=== PATIENT | female | born 1970 ===

== ENCOUNTER 2021-03-20 19:40 | Emergency (ER) | payer OTHER, SELFPAY ==
--- NOTE | ~2021-03-20 | XR_ITS ---
EXAMINATION: XR FINGER, LEFT CLINICAL INFORMATION: Cut index finger with an X COMPARISON: None TECHNIQUE: 3 views of the left left index finger. FINDINGS: There is a fracture of the distal tuft of the distal phalanx of the index finger. The fracture appears to extend mainly on the radial aspect of the phalanx. No other fractures are seen. Incidentally noted are some mild degenerative changes at the DIP joints. XR/XR finger LT min 2V IMPRESSION: Fracture of the distal tuft of the distal phalanx of the index finger.
[2021-03-20 20:12] VITALS: BP 127/87; PULSE 91; RESP 16; TEMP 36.7; O2SAT 98; BMI 30.9
[2021-03-20] MEDS: Lidocaine 4 % Cream KIT 1 APPL TOPICAL (20:18)
--- NOTE | 2021-03-20 21:48 | ED_ITS ---
HPI - Wound/Laceration General Chief Complaint: Wound/Laceration <Abimael Valdes NP - Last Filed: 05/08/21 02:00> Stated Complaint: finger lac <Abimael Valdes NP - Last Filed: 05/08/21 02:00> Time Seen by Provider: 03/20/21 19:55 <Abimael Valdes NP - Last Filed: 05/08/21 02:00> Source: patient <Abimael Valdes NP - Last Filed: 05/08/21 02:00> Mode of arrival: ambulatory <Abimael Valdes NP - Last Filed: 05/08/21 02:00> Limitations: no limitations <Abimael Valdes NP - Last Filed: 05/08/21 02:00> History of Present Illness HPI narrative: States was chopping wood with an Axe and accidentally cut left index finger distal aspect with ax. Unsure of tetanus vaccination. <Abimael Valdes NP - Last Filed: 05/08/21 02:00> Extremity Location: left: hand <Abimael Valdes NP - Last Filed: 05/08/21 02:00> Place: home <Abimael Valdes NP - Last Filed: 05/08/21 02:00> Patient tetanus UTD: No <Abimael Valdes NP - Last Filed: 05/08/21 02:00> Context: accidental <Abimael Valdes NP - Last Filed: 05/08/21 02:00> Associated symptoms: pain <Abimael Valdes NP - Last Filed: 05/08/21 02:00> Treatments prior to arrival: bandage <Abimael Valdes NP - Last Filed: 05/08/21 02:00> Related Data Home Medications: Previous Rx's Medication Instructions Recorded amoxicillin-pot clavulanate 1 tab PO Q12H 10 Days #20 tab 03/20/21 [Augmentin] ibuprofen 800 mg PO Q8H PRN #30 tab 03/20/21 <Abimael Valdes NP - Last Filed: 05/08/21 02:00> Allergies/Adverse Reactions: Allergies Allergy/AdvReac Type Severity Reaction Status Date / Time pseudoephedrine [Sudafed] Allergy Unknown increase Verified 04/02/21 09:16 b/p No Known Allergies Allergy Verified 04/02/21 09:16 [No Known Allergies*] sulfamethoxazole Allergy Unknown Verified 04/02/21 09:16 [From Bactrim] trimethoprim [From Bactrim] Allergy Unknown Verified 04/02/21 09:16 Sulfa (Sulfonamide AdvReac Unknown acute Verified 04/02/21 09:16 Antibiotics) kidney injury wheat, casein, soy, tomatoes Allergy Unknown Diarrhea Uncoded 04/02/21 09:16 a <Abimael Valdes NP - Last Filed: 05/08/21 02:00> Review of Systems Review of Systems: Constitutional: No Weight loss, No Fever, No Chills, No Night Sweats, No Fatigue, No Malaise ENT/Mouth: No Hearing loss, No Ear Pain, No Nasal Congestion, No Sinus Pain, No Hoarseness, No sore throat, No Rhinorrhea, No Swallowing Difficulty Eyes: No Eye Pain, No Swelling, No Redness, No Foreign Body, No Discharge, No Vision Changes Cardiovascular: No Chest Pain, No SOB, No Dyspnea on Exertion, No Orthopnea, No Edema, No Palpitations Respiratory: No Cough, No Sputum, No Wheezing, No Smoke Exposure, No Dyspnea Musculoskeletal: No joint pain, No Myalgias, No Joint Swelling, as above per HPI Skin: No Skin Lesions, No rash Neuro: No Weakness, No Numbness, No Paresthesias, No Loss of Consciousness, No Dizziness, No Headache Psych:No Social Issues Heme/Lymph: No Bruising, No Bleeding,No Lymphadenopathy Endocrine: No Polyuria, No Polydipsia, No Temperature Intolerance <Abimael Valdes NP - Last Filed: 05/08/21 02:00> Yes all other systems are reviewed and are negative <Abimael Valdes NP - Last Filed: 05/08/21 02:00> PMFSH Past Medical History Medical History: Medical History No known health problems <Abimael Valdes NP - Last Filed: 05/08/21 02:00> Social History Social History: Social History Alcohol intake: never Current occupational status: employed 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 <Abimael Valdes NP - Last Filed: 05/08/21 02:00> Physical Exam Vital Signs: Vital Signs: Last Vital Signs Temp 98.1 F 03/20/21 20:12 Pulse 91 03/20/21 20:12 Resp 16 03/20/21 20:12 BP 127/87 03/20/21 20:12 Pulse Ox 98 03/20/21 20:12 Body Mass Index 30.9 Reviewed <Abimael Valdes NP - Last Filed: 05/08/21 02:00> Vital Signs: Last Vital Signs Temp 98.1 F 03/20/21 20:12 Pulse 91 03/20/21 20:12 Resp 16 03/20/21 20:12 BP 127/87 03/20/21 20:12 Pulse Ox 98 03/20/21 20:12 Body Mass Index 30.9 <Mik Azul MD - Last Filed: 06/09/21 09:40> Const: General: cooperative and healthy appearing; No acute distress or intoxicated appearing <Abimael Valdes NP - Last Filed: 05/08/21 02:00> Nutritional Appearance: average body habitus <Abimael Valdes NP - Last Filed: 05/08/21 02:00> Orientation/consciousness: patient oriented x3 <Abimael Valdes NP - Last Filed: 05/08/21 02:00> HENMT: Head: Yes normal to inspection <Abimael Valdes NP - Last Filed: 05/08/21 02:00> Ears: hearing grossly normal bilaterally <Abimael Valdes NP - Last Filed: 05/08/21 02:00> Chest: Chest palpation & inspection: normal inspection of the chest <Abimael Valdes NP - Last Filed: 05/08/21 02:00> Resp: Effort & Inspection: normal respiratory effort <Abimael Valdes NP - Last Filed: 05/08/21 02:00> Cardio: Jugular venous distension: no JVD <Abimael Valdes NP - Last Filed: 05/08/21 02:00> Skin: General skin exam: no rashes or lesions noted <Abimael Valdes NP - Last Filed: 05/08/21 02:00> Neuro: General: patient oriented x3 <Abimael Valdes NP - Last Filed: 05/08/21 02:00> Extrem: General: Yes normal to inspection <Abimael Valdes NP - Last Filed: 05/08/21 02:00> Left upper extremity: hand <Abimael Valdes NP - Last Filed: 05/08/21 02:00> Course Course Course Narrative: X-ray findings reviewed, laceration repaired case discussed with orthopedic hand surgeon Dr. Mccarthy's will see in office. Patient will be placed on prophylactic antibiotics. Given tetanus vaccination. Finger splint provided feels comfortable plan. Stable for discharge. <Abimael Valdes NP - Last Filed: 05/08/21 02:00> I have reviewed the chart <Mik Azul MD - Last Filed: 06/09/21 09:40> Procedures Laceration Laceration 1: Side (If applicable): left <Abimael Valdes NP - Last Filed: 05/08/21 02:00> Size (cm): 1 <Abimael Valdes NP - Last Filed: 05/08/21 02:00> Description: linear <Abimael Valdes NP - Last Filed: 05/08/21 02:00> Depth: simple, single layer <Abimael Valdes NP - Last Filed: 05/08/21 02:00> Local Anesthetic: lidocaine 1% (Digital block 5 ml) <Abimael Valdes NP - Last Filed: 05/08/21 02:00> Amount of anesthesia used (mL): 5 <Abimael Valdes NP - Last Filed: 05/08/21 02:00> Pre-repair: wound explored <Abimael Valdes NP - Last Filed: 05/08/21 02:00> Skin layer closed with: nylon <Abimael Valdes NP - Last Filed: 05/08/21 02:00> Size (cm): 4-0 <Abimael Valdes NP - Last Filed: 05/08/21 02:00> Number of sutures: 4 <Abimael Valdes NP - Last Filed: 05/08/21 02:00> Technique: simple, interrupted <Abimael Valdes NP - Last Filed: 05/08/21 02:00> MDM - Wound/Laceration Differential Diagnosis Differential diagnosis: Likely laceration <Abimael Valdes NP - Last Filed: 05/08/21 02:00> Lab Data Attestation: I reviewed the patient's lab results. <Abimael Valdes NP - Last Filed: 05/08/21 02:00> Imaging Data Hand x-ray: Radiologist's impression: [address] [id number] ReportSigned Patient: Jerson Iniguez#: [id number]: [id number] :[id number]/Sex: 50 / FADM Date: 03/20/21Loc: [email or web address] Dr: Ordering Physician: Abimael Valdes NP Date of Service: 03/20/21 Procedure(s): XR finger LT min 2V Accession Number(s): [id number] cc: Abimael Valdes NP~ EXAMINATION: XR FINGER, LEFT CLINICAL INFORMATION: Cut index finger with an X COMPARISON: None TECHNIQUE: 3 views of the left left index finger. FINDINGS: There is a fracture of the distal tuft of the distal phalanx of the index finger. The fracture appears to extend mainly on the radial aspect of the phalanx. No other fractures are seen. Incidentally noted are some mild degenerative changes at the DIP joints. XR/XR finger LT min 2V IMPRESSION: Fracture of the distal tuft of the distal phalanx of the index finger. Dictated By:MIK YAP MDSigned By:<Electronically signed by MIK YAP MD in OV>03/20/212010 DD/ 54TD/TT: Principal Technical Writer: MARILEE <Abimael Valdes NP - Last Filed: 05/08/21 02:00> Discharge Plan Discharge Clinical Impression: Open fracture of finger, Finger laceration <Abimael Valdes NP - Last Filed: 05/08/21 02:00> Patient Disposition: Home, Self-Care <Abimael Valdes NP - Last Filed: 05/08/21 02:00> Instructions: Diphtheria/Acellular Pertussis/Tetanus Booster Vaccine (Tdap) (By..., Finger Fracture (ED), Splint Care (ED), Finger Laceration (ED) <Abimael Valdes NP - Last Filed: 05/08/21 02:00> Additional Instructions: Please leave splint in place Taking antibiotic as prescribed Follow-up with the hand surgeon closely call tomorrow for follow-up appointment Return if any concerns or worsening symptoms Thank you <Abimael Valdes NP - Last Filed: 05/08/21 02:00> Prescriptions: New amoxicillin-pot clavulanate [Augmentin] 875-125 mg tablet 1 tab PO Q12H 10 Days Qty: 20 RF: 0 ibuprofen 800 mg tablet 800 mg PO Q8H PRN (Reason: pain) Qty: 30 RF: 0 <Abimael Valdes NP - Last Filed: 05/08/21 02:00> Referrals: Tia Tafoya MD [Physician] - 2 days ( Fracture of the distal tuft of the distal phalanx of the index finger. Given tetanus, antibiotics and 3 stitches in the ED) <Abimael Valdes NP - Last Filed: 05/08/21 02:00> Interventions: ED Discharge Assessment Last Done: 03/20/21 22:33 <Abimael Valdes NP - Last Filed: 05/08/21 02:00> Discharge Date/Time: 03/20/21 22:48 <Abimael Valdes NP - Last Filed: 05/08/21 02:00>
[2021-03-20] MEDS: Diphth,Pertus(ACell),Tet Adult 0.5 ML SYRINGE IM (22:08)
[2021-03-20] MEDS: Amoxicillin/Potassium Clav 875 MG TABLET PO (22:08)
[2021-03-20] MEDS: Ibuprofen 800 MG TABLET PO (22:16)
== END 2021-03-20 22:48 | disposition home or self-care (01) ==
PROVIDERS: Emergency Provider Internal Medicine; PCP Internal Medicine
DX: S62.661B Nondisplaced fracture of distal phalanx of left index finger, initial encounter for open fracture (principal); W27.0XXA Contact with workbench tool, initial encounter; Y93.89 Activity, other specified; Y92.017 Garden or yard in single-family (private) house as the place of occurrence of the external cause; Y99.9 Unspecified external cause status
CPT/HCPCS: 12001; 29130; 73140; 90471; 90715; 99284

== ENCOUNTER → 2021-03-26 09:35 | Outpatient (BNVA) | payer OTHER, SELFPAY | PROVIDERS: Visit Provider Orthopaedic Surgery | DX: S62.631B Displaced fracture of distal phalanx of left index finger, initial encounter for open fracture (principal) | CPT/HCPCS: 99202 ==

== ENCOUNTER → 2021-04-02 09:01 | Outpatient (BNVA) | payer OTHER, SELFPAY | PROVIDERS: Visit Provider Physician Assistant | DX: S62.631B Displaced fracture of distal phalanx of left index finger, initial encounter for open fracture (principal) | CPT/HCPCS: 99212 ==

== ENCOUNTER 2021-08-24 09:32 | Outpatient (REF) | payer OTHER, SELFPAY ==
[2021-08-24 11:26] LABS: MANUAL DIFF FLAG NO
[2021-08-24 11:33] LABS: Basophils Percent Auto 0.6 % (0-2); Eosinophils Absolute Auto 0.1 X10*3/uL (0.0-0.4); Eosinophils Percent Auto 2.3 % (0-4); Hematocrit 41.6 % (37-47); Hemoglobin 13.8 g/dl (12.0-16.0); Imm Gran Abs Auto 0.01 X10*3/uL (0.00-0.03); Imm Gran Pct Auto 0.2 % (0.0-0.4); Lymphocytes Absolute Auto 1.4 X10*3/uL (1.2-4.9); Lymphocytes Percent Auto 27.4 % (20-40); Mean Corpuscular HGB Conc 33.2 g/dl (31.0-35.0); Mean Corpuscular Hemoglobin 28.8 pg (27.0-33.0); Mean Corpuscular Volume 86.8 fL (80-98); Mean Platelet Volume 9.4 fL (9.4-12.3); Monocytes Absolute Auto 0.4 X10*3/uL (0.1-1.2); Monocytes Percent Auto 8.2 % (2-11); Neutrophils Absolute Auto 3.1 X10*3/uL (2.0-8.3); Neutrophils Percent Auto 61.3 % (45-73); Platelet Count 277 X10*3/uL (160-400); Red Blood Count 4.79 X10*6/uL (4.20-5.50); Red Cell Distribution Width 12.1 % (11.0-16.0); White Blood Count 5.1 X10*3/uL (4.8-10.8)
[2021-08-24 11:50] LABS: Alanine Aminotransferase 11 U/L (0-31); Aspartate Amino Transferase 16 U/L (5-31); Cholesterol 272 mg/dL; HDL Cholesterol 45 mg/dL; LDL Cholesterol Calculated 193 mg/dl; Triglycerides 171 mg/dL
[2021-08-24 12:11] LABS: Erythrocyte Sedimentation Rate 14 MM/HR (0-20)
[2021-08-24 12:13] LABS: TSH reflex Free T4 2.21 uIU/mL (0.32-4.0)
[2021-08-24 12:23] LABS: Folate 9.1 ng/mL (> or = 4.0); Vitamin B12 792 pg/mL (200-900)
[2021-08-25 17:02] LABS: EBV-VCA IgM Ab <36.00 U/mL; Lyme Abs Screen <0.90 index
[2021-08-27 13:56] LABS: CRP High Sensitivity 3.2 mg/L
[2021-08-29 22:42] LABS: Anti Nuclear Antibody Screen POSITIVE (NEGATIVE)
== END 2021-08-24 09:33 | disposition home or self-care (01) ==
LOC: HO.HMGCLDS 09:32
PROVIDERS: PCP Internal Medicine; Visit Provider Internal Medicine
DX: E66.9 Obesity, unspecified (principal); F43.10 Post-traumatic stress disorder, unspecified; H69.80 Other specified disorders of Eustachian tube, unspecified ear; H93.19 Tinnitus, unspecified ear; M25.50 Pain in unspecified joint; R53.81 Other malaise; R53.82 Chronic fatigue, unspecified; Z78.0 Asymptomatic menopausal state
CPT/HCPCS: 36415; 80061; 82306; 82607; 82746; 84443; 84450; 84460; 85025; 85652; 86038; 86039; 86141; 86617; 86618; 86664; 86665

== ENCOUNTER 2021-12-31 08:26 | Outpatient (REF) | payer OTHER, SELFPAY ==
--- NOTE | ~2021-12-31 | US_ITS ---
EXAMINATION: US ABDOMEN COMPLETE CLINICAL INFORMATION: Right upper quadrant pain. COMPARISON: Ultrasound abdomen limited 03/13/2018. CT abdomen and pelvis without contrast 03/12/2018. TECHNIQUE: Real-time imaging of the abdominal viscera. FINDINGS: PANCREAS: Normal. ABDOMINAL AORTA: The proximal, mid, and distal segments are normal in caliber. INFERIOR VENA CAVA: Visualized portions are normal. LIVER: The liver is normal in size. The liver contour is normal. Liver echotexture is slightly increased. No focal hepatic lesion. There is no intrahepatic biliary duct dilatation seen. GALLBLADDER: Normal. The gallbladder is physiologically distended without evidence of stones, sludge, polyps, wall thickening or pericholecystic fluid. COMMON BILE DUCT: Normal in caliber measuring 0.4 cm in diameter. RIGHT KIDNEY: Normal. No hydronephrosis. No renal calculi or focal parenchymal lesions. The kidney measures 10.4 cm in maximum dimension. LEFT KIDNEY: There is a 3 mm echogenic density in the lower pole with twinkle artifact questionable for a stone versus cortical calcification. No hydronephrosis. The kidney measures 9.9 cm in maximum dimension. SPLEEN: Normal. The spleen measures 7.9 cm in maximum dimension. FREE FLUID: None. US/US abdomen complete IMPRESSION: Slightly echogenic liver. Question small left renal stone versus cortical calcification. Otherwise unremarkable exam.
== END 2021-12-31 08:27 | disposition home or self-care (01) ==
LOC: HO.HMGCX 08:26
PROVIDERS: PCP Internal Medicine; Visit Provider Internal Medicine
DX: R10.11 Right upper quadrant pain (principal)
CPT/HCPCS: 76700

== ENCOUNTER 2022-02-05 15:01 | Outpatient (REF) | payer OTHER, SELFPAY ==
[2022-02-08 12:21] LABS: Transglutaminase Ab IgG <1.0 U/mL; Transglutaminase IgA <1.0 U/mL
== END 2022-02-05 15:02 | disposition home or self-care (01) ==
LOC: HO.LAB 15:01
PROVIDERS: PCP Internal Medicine; Referring Provider Internal Medicine; Visit Provider Nurse Practitioner Family
DX: Z01.818 Encounter for other preprocedural examination (principal); R10.11 Right upper quadrant pain; R14.0 Abdominal distension (gaseous)
CPT/HCPCS: 36415; 86364; 99202

== ENCOUNTER 2022-04-23 11:39 | Outpatient (REF) | payer OTHER, SELFPAY | END 2022-04-23 11:40 | disposition home or self-care (01) | LOC: HO.LAB 11:39 | PROVIDERS: PCP Internal Medicine; Visit Provider Nurse Practitioner Family | DX: K58.9 Irritable bowel syndrome, unspecified (principal) | CPT/HCPCS: 36415; 86003; 99212 ==

== ENCOUNTER 2022-07-19 11:00 | Outpatient (RCR) | payer OTHER, SELFPAY ==
--- NOTE | 2022-05-28 15:20 | MHC.PT.EP ---
[facility] [employer] [place] Office [place] Office [place] Office [address] Janet Mcbride [address] [phone] F: [phone] F: [phone] F: [phone] F: [phone] Physical Therapy Plan of Care Date of Evaluation: Date of Surgery: N/A Diagnosis: low back/bilateral shoulder pain and polyarthralgia Assessment: Angelica is a 52 yo F referred to PT for low back/bilateral shoulder pain and polyarthralgia. She reports that back pain is more limiting then shoulder pain. She reports receiving help with shopping, cleaning, and lifting heaving objects from her , but does dress and bathe herself although with difficulty. Reports pain does wake her up in the night. 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 She presents with B gross weakness in her hips and tissue tension in her low back. Angelica will benefit from skilled PT to treat the aforementioned impairments and receive postural education, and develop pain management strategies. Frequency and Duration: The patient will be seen 2/ week for 6 weeks Short Term Goals: Patient will report a 50% decrease in pain which will allow her to sleep throughout the night in 3 weeks. Patient will demonstrate initiation of HEP in 3 weeks. Asses shoulder is 2 weeks Mcc Goals: Patient will be I with HEP to promote ocean transportation intermediary pain management strategies and maintain level of function in 6 weeks. Patient will demonstrate a 1/2 grade increase in core strength which will allow her to sit for extended periods while playing piano and return to other functions with a pain no more than 2/10 in 6 weeks. Treatment Plan: Modalities to reduce pain, spasms and effusion. Manual therapy to restore motion and function. Therapeutic exercise to improve strength and flexibility. Neuromuscular re-education for posture and balance. Therapeutic activities to return to functional activities of daily living. Electronically signed by: Farida Arrington PT DPT Please sign and return to therapist. Thank you for your referral.
--- NOTE | 2022-08-21 13:48 | MHC.PT.DC ---
[facility] [place] Office [place] Office [place] Office [address] Tessa Mcbride 140 [facility] [phone] F: [phone] F: [phone] F: [phone] F: [phone] Physical Therapy Discharge Report Diagnosis: low back/bilateral shoulder pain and polyarthralgia Date of Surgery: N/A Date of Evaluation: 05/28/22 Date of Discharge: 08/21/22 Treatments to Date: 8 Cancellations to Date: 0 No Shows to Date: Discharge Status: Patient Elected to Stop Discharge Summary: Angelica has not arrived to PT for over a month. She canceled her last appointment stating she has a procedure however she did not reschedule. She is therefore being d/c from PT. Electronically signed by: Farida Arrington PT DPT Please sign and return to therapist. Thank you for your referral.
== END 2022-08-21 13:48 | disposition home or self-care (01) ==
LOC: HO.PT 11:00
PROVIDERS: PCP Internal Medicine; Visit Provider Internal Medicine
DX: M25.50 Pain in unspecified joint (principal); M54.50 Low back pain, unspecified; M25.511 Pain in right shoulder; M25.512 Pain in left shoulder
CPT/HCPCS: 97110; 97162

== ENCOUNTER 2022-07-29 10:00 | Day surgery (SDC) | payer OTHER, SELFPAY ==
[2022-07-24 14:47] VITALS: BMI 32.5
--- NOTE | 2022-07-29 10:19 | HO.ANESPROP2 ---
[facility], [facility] Active Problems Active Problems: All Active Problems (Updated 10/28/21 @ 16:42 by Anastasiia Chaparro MD) Dyslipidemia (Acute) Elevated antinuclear antibody (LOI) level (Acute) Chronic fatigue and malaise (Acute) Polyarthralgia (Acute) Tinnitus (Acute) Eustachian tube dysfunction (Acute) PTSD (post-traumatic stress disorder) (Acute) Open fracture of distal phalanx of left index finger (Acute) Past Medical History Medical History Addiction Chronic fatigue and malaise Depressed Dyslipidemia Elevated antinuclear antibody (LOI) level Eustachian tube dysfunction Polyarthralgia PTSD (post-traumatic stress disorder) Tinnitus Family History Family History Father Substance abuse Mother Mental health disorder Paternal Grandmother Colon cancer Family history of problems with anesthesia: No Surgical History Surgical History Hx of laparoscopy History of Problems with Anesthesia: No Social History Social History Housing: House Are you a primary pet care technician to a significant other at home: No Do you presently have visiting nurse or other home services: No Alcohol intake: never Patient Tobacco Use Status: Former Tobacco user Tobacco use type: Cigarette Cigarette Packs Per Day: 1 Cigarettes Per Day: 20 Years Smoked: 9 e-Cigarette/Vaping Use: Never Used Second Hand Smoke Exposure: No Use of substances other than those prescribed or required for medical reasons: No Have you been hit, kicked, punched, or otherwise hurt by someone within the past year? 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 Cognitive needs: No Hearing needs: No Vision needs: Yes Meds Allergies Allergy/AdvReac Type Severity Reaction Status Date / Time pseudoephedrine [Sudafed] Allergy Intermediate increase Verified 07/24/22 14:43 b/p Sulfa (Sulfonamide Allergy Intermediate acute Verified 07/24/22 14:43 Antibiotics) kidney injury sulfamethoxazole Allergy Intermediate kidney Verified 07/24/22 14:43 [From Bactrim] function dropped trimethoprim [From Bactrim] Allergy Intermediate kidney Verified 07/24/22 14:43 function dropped wheat, casein, soy, tomatoes AdvReac Intermediate Diarrhea Uncoded 07/24/22 14:43 a Active Medications: Current Medications Lactated Ringer's (Lr) 1,000 mls @ 50 mls/hr IVCONT .Q20H MELISSA Home Medications Medication Instructions Recorded Confirmed Last Taken Type antiarthritic combination no.2 900 mg PO 04/01/22 04/01/22 Unknown History mg tablet (glucosamine-chondroitin) cholecalciferol (vitamin D3) 25 25 mcg PO DAILY 04/01/22 04/01/22 Unknown History mcg/drop (1,000 unit/drop) oral drops ginkgo biloba 400 mg capsule 800 mg PO DAILY 04/01/22 04/01/22 Unknown History hyalur ac-chond sul-colg II-AA 40 cap PO 04/01/22 04/01/22 Unknown History mg-80 mg-400 mg capsule (Hyaluronic Acid(with chondroitin-collagenII)) lutein 20 mg capsule 20 mg PO DAILY 04/01/22 04/01/22 Unknown History lysine HCl 500 mg capsule 200 mg PO DAILY 04/01/22 04/01/22 Unknown History omega-3 fatty acids 500 mg capsule 500 mg PO DAILY 04/01/22 04/01/22 Unknown History turmeric root extract 500 mg 500 mg PO DAILY 04/01/22 04/01/22 Unknown History capsule vitamin B complex 1 cap PO DAILY 04/01/22 04/01/22 Unknown History Exam Exam Date and Time: July 29, 2022 1019 Height,Weight and Vital Signs: Height 5 ft 1 in Weight 78.018 kg Airway Mallampati Class: II (Top loose cap front, bridge, ultiple caps through out) TM Dist: >3cm Neck ROM: Full Heart: rrr Lungs: cta Assessment and Plan Assessment Anesthesia Assessment: Anesthesia Plan Discussed and Chart Reviewed Final Anesthetic Review Family History of Problems with Anesthesia: No History of Problems with Anesthesia: No NPO: Yes ASA Class: II Final Preanesthetic Review: No Changes in Pt Med Stat, Meds/Allgs Chart Reviewed and Consent Obtained/Reviewed Patient Risk: Intermediate Procedure Risk: Intermediate Anesthetic Plan Anesthetic Plan: MAC: Disposition: Standard PACU
[2022-07-29 10:31] VITALS: BP 145/81; PULSE 62; RESP 18; TEMP 36.6; O2SAT 98; BMI 32.5
[2022-07-29] MEDS: Lactated Ringers 1,000 ML 50 ML IVCONT (10:36)
--- NOTE | 2022-07-29 10:46 | MHC.SHP ---
Pre-Procedural Eval Section A Date of Service: 07/29/22 The patient is an INPATIENT: No The History & Physical has been completed within 30 days and I have reviewed it.: No Section B Chief Complaint: Abdominal distension (gaseous),screening Relevant Family History (Specify if Yes): Yes Relevant Social History: Tobacco Use (Former smoker) Present Medications: see Short Stay Collaborative assessment Medical History: Significant History (Addiction Chronic fatigue and malaise Depressed Dyslipidemia Elevated antinuclear antibody (LOI) level Eustachian tube dysfunction Polyarthralgia PTSD (post-traumatic stress disorder) Tinnitus) History of Previous Operations: Relevant previous surgery/procedure and date(s) (Hx of laparoscopy) Allergies: Allergies Allergy/AdvReac Type Severity Reaction Status Date / Time pseudoephedrine [Sudafed] Allergy Intermediate increase Verified 07/24/22 14:43 b/p Sulfa (Sulfonamide Allergy Intermediate acute Verified 07/24/22 14:43 Antibiotics) kidney injury sulfamethoxazole Allergy Intermediate kidney Verified 07/24/22 14:43 [From Bactrim] function dropped trimethoprim [From Bactrim] Allergy Intermediate kidney Verified 07/24/22 14:43 function dropped wheat, casein, soy, tomatoes AdvReac Intermediate Diarrhea Uncoded 07/24/22 14:43 a Review of Systems Sugical H&P ROS: Negative: Constitution, Cardiovascular and Respiratory and Yes, Specify: Gastrointestinal (IBS) Exam Surgical H&P Exam: Normal: Heart, Normal: Lungs, Normal: Extremities and Normal: Abdomen Plan Diagnosis/Plan: Unchanged I have reviewed the history and physical and performed a pertinent physical examination on my patient. No changes have occurred unless specified.
--- NOTE | 2022-07-29 10:59 | W.PM.OPN ---
Operative Note Operative Note Date of Service: 07/29/22 Narrative: Pre-op diagnosis: Colon cancer screening, IBS, family history of colon cancer (paternal GM in her 70's) Post-op diagnosis:?other (Colon polyp, diverticulosis, hemorrhoids) Procedure: COLONOSCOPY TILL CECUM WITH BIOPSIES Consent: Indications for the procedure and potential complications of bleeding, perforation, reaction to medications and missed diagnosis were discussed with the patient and informed consent was obtained. Instrument: Olympus PCF H 190 L variable stiffness pediatric colonoscope Monitoring: Vital signs and clinical assessment, intermittent blood pressure monitoring, continuous EKG monitoring, Pulse oximetry and Carbon Dioxide monitoring were done throughout the procedure. Colon withdrawl time was 18 minutes. Procedure: The patient was placed in the left lateral decubitis position and pre-procedure medications were administered. After a digital rectal examination of the ano-rectum, the video colonoscope was inserted into the rectum and advanced through the colon to the cecum. The colonoscope was slowly withdrawn in a retrograde panoramic fashion and the colon mucosa was carefully examined including a retroflexed view of the rectum. Findings and interventions are described below. Procedure Difficulty: Without difficulty Findings: Terminal Ileum: Distal 5 cms was examined and appeared normal Cecum:? Normal Ascending Colon:? Normal Transverse Colon:? Normal Descending Colon:? Moderate diverticulosis Sigmoid Colon:? A 4-5 mm diminutive appearing polyp removed with a cold bx. Moderate diverticulosis Rectum:? Normal Ano-rectum:? Moderate internal hemorrhoids Colon preparation: Excellent ? Impression and Post Procedure Diagnosis: Colonoscopy Findings: One diminutive appearing polyp removed Random biopsies were obtained from right and left colon to check for microscopic colitis. Moderate diverticulosis seen in the left colon Moderate hemorrhoids on retroflexed exam. Plan: Await pathology results Patient has an appointment on 08/12/22 in the GI Clinic with Heidi Quevedo FNP-BC. Repeat Colonoscopy interval based on path results - in 5 years if polyps are adenomatous and 10 years if polyps are hyperplastic. Above findings were reviewed with the patient and colon polyps and diverticulosis handouts were given in the discharge area Surgeon: Raoul Santos MD Anesthesia:?MAC Was an Used Equipment Sales Representative used for this Procedure?:?Yes Used Equipment Sales Representative:?Danna Kumar Estimated blood loss (mL):?0 Pathology:?other (A: right colon biopsy to rule out microscopic colitis? B: biopsy left colon to rule out microscopic colitis? C: sigmoid colon polyp) Condition:?stable Disposition:?PACU
[2022-07-29 11:32] VITALS: BP 153/94; PULSE 85; RESP 16; TEMP 36.7; O2SAT 99
[2022-07-29 11:48] VITALS: BP 121/79; PULSE 71; RESP 18; O2SAT 99
[2022-07-29 12:03] VITALS: BP 126/84; PULSE 67; RESP 18; TEMP 36.4; O2SAT 100
== END 2022-07-29 12:40 | disposition home or self-care (01) ==
PROVIDERS: PCP Internal Medicine; Visit Provider Internal Medicine Gastroenterology
PROC: 0DJD8ZZ Inspection of Lower Intestinal Tract, Via Natural or Artificial Opening Endoscopic (ICD-10-PCS; CPT 45378; principal; 2022-07-29 11:00)
DX: Z12.11 Encounter for screening for malignant neoplasm of colon (principal); K63.5 Polyp of colon; K57.30 Diverticulosis of large intestine without perforation or abscess without bleeding; K64.8 Other hemorrhoids; K58.9 Irritable bowel syndrome, unspecified; Z80.0 Family history of malignant neoplasm of digestive organs
CPT/HCPCS: 45380; 88305

== ENCOUNTER → 2022-08-12 11:00 | Outpatient (BNVA) | payer OTHER, SELFPAY | PROVIDERS: PCP Internal Medicine; Visit Provider Nurse Practitioner Family | DX: K57.90 Diverticulosis of intestine, part unspecified, without perforation or abscess without bleeding (principal); K58.9 Irritable bowel syndrome, unspecified; K64.9 Unspecified hemorrhoids; Z98.890 Other specified postprocedural states | CPT/HCPCS: 99212 ==

== ENCOUNTER 2022-09-09 11:57 | Outpatient (REF) | payer OTHER, SELFPAY ==
[2022-09-17 22:52] LABS: Pancreatic Elastase-1 >500 mcg/g
== END 2022-09-09 11:58 | disposition home or self-care (01) ==
LOC: HO.LNP 11:57
PROVIDERS: Visit Provider Nurse Practitioner Family
DX: R10.9 Unspecified abdominal pain (principal)
CPT/HCPCS: 82656

== ENCOUNTER 2023-04-18 11:00 | Outpatient (RCR) | payer OTHER, SELFPAY | END 2023-04-18 12:02 | disposition home or self-care (01) | LOC: HO.PTCHIC 11:00 | PROVIDERS: PCP Internal Medicine; Visit Provider Internal Medicine Rheumatology | DX: M51.36 Other intervertebral disc degeneration, lumbar region (principal) | CPT/HCPCS: 97110; 97112; 97162 ==

== ENCOUNTER 2023-06-17 10:13 | Outpatient (REF) | payer OTHER, SELFPAY ==
[2023-06-17 13:33] LABS: MANUAL DIFF FLAG NO
[2023-06-17 13:49] LABS: Basophils Percent Auto 0.7 % (0-2); Eosinophils Absolute Auto 0.2 X10*3/uL (0.0-0.4); Eosinophils Percent Auto 3.5 % (0-4); Hemoglobin 13.4 g/dl (12.0-16.0); Imm Gran Abs Auto 0.01 X10*3/uL (0.00-0.03); Imm Gran Pct Auto 0.2 % (0.0-0.4); Lymphocytes Absolute Auto 1.9 X10*3/uL (1.2-4.9); Lymphocytes Percent Auto 31.6 % (20-40); Mean Corpuscular HGB Conc 32.7 g/dl (31.0-35.0); Mean Corpuscular Hemoglobin 29.1 pg (27.0-33.0); Mean Corpuscular Volume 88.9 fL (80.0-98.0); Mean Platelet Volume 9.1 fL (9.4-12.3); Monocytes Absolute Auto 0.5 X10*3/uL (0.1-1.2); Monocytes Percent Auto 8.6 % (2-11); Neutrophils Absolute Auto 3.4 x10*3/uL (2.0-8.3); Neutrophils Percent Auto 55.4 % (45-73); Platelet Count 285 X10*3/uL (160-400); Red Blood Count 4.61 X10*6/uL (4.20-5.50); Red Cell Distribution Width 12.1 % (11.0-16.0); White Blood Count 6.1 X10*3/uL (4.8-10.8)
[2023-06-17 14:28] LABS: Alanine Aminotransferase 17 U/L (0-31); Albumin Level 4.1 g/dL (3.5-5.0); Alkaline Phosphatase 70 U/L (39-117); Anion Gap 16 (12-20); Aspartate Amino Transferase 20 U/L (5-31); Bilirubin Total 0.6 mg/dL (0.0-1.0); Blood Urea Nitrogen 12 mg/dL (9-16); Calcium 9.3 mg/dL (8.4-10.2); Carbon Dioxide 22 mmol/L (22-29); Chloride 108 mmol/L (96-108); Cholesterol 303 mg/dL; Estimated Glomerular Filt Rate > 60; Glucose Fasting 86 mg/dL (60-99); HDL Cholesterol 45 mg/dL; LDL Cholesterol Calculated 206 mg/dl; Potassium 4.3 mmol/L (3.3-5.1); Sodium 142 mmol/L (135-145); Total Protein 7.3 g/dL (6.5-8.0); Triglycerides 264 mg/dL; Vitamin D 25-OH Total 47.2 ng/mL (>30)
[2023-06-18 07:53] LABS: Triiodothyronine T3 Free 3.1 pg/mL (2.3-4.2)
== END 2023-06-17 10:14 | disposition home or self-care (01) ==
LOC: HO.HMGCLDS 10:13
PROVIDERS: PCP Internal Medicine; Visit Provider Internal Medicine
DX: F32.1 Major depressive disorder, single episode, moderate (principal); M79.7 Fibromyalgia; E78.00 Pure hypercholesterolemia, unspecified
CPT/HCPCS: 36415; 80053; 80061; 82306; 84439; 84443; 84481; 85025

== ENCOUNTER 2023-12-24 14:22 | Outpatient (AMB) | payer OTHER, SELFPAY ==
[2023-12-24 14:42] VITALS: BP 122/86; BMI 35.4
--- NOTE | 2023-12-24 14:42 | MHC.OFFVIS ---
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 Intake Note: NPV w/ EKG Inspector Receiving Required: No Accompanied by: Self / Same As Patient Allergies pseudoephedrine [Sudafed] Allergy (Intermediate, Verified 12/24/23 14:44) increase b/p Sulfa (Sulfonamide Antibiotics) Allergy (Intermediate, Verified 12/24/23 14:44) acute kidney injury sulfamethoxazole [From Bactrim] Allergy (Intermediate, Verified 12/24/23 14:44) kidney function dropped trimethoprim [From Bactrim] Allergy (Intermediate, Verified 12/24/23 14:44) kidney function dropped wheat, casein, soy, tomatoes a Adverse Reaction (Intermediate, Uncoded 12/24/23 14:44) Diarrhea Medication List - Last Reconciled 12/24/23 by Lamine Tipton MD cholecalciferol (vitamin D3) 25 mcg PO DAILY ginkgo biloba 800 mg PO DAILY omega-3 fatty acids 500 mg PO DAILY quercetin 500 mg PO turmeric root extract 500 mg PO DAILY vitamin B complex 1 cap PO DAILY HPI HPI Comments History of Present Illness Details Angelica is here for consultation regarding various symptoms. 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 She has various cardiac concerns. She frequently gets chest pains but no specific patterns. Somewhat random. She also gets short of breath with activity. Dizziness, feels tachycardic upon getting up. Whenever she is in heart situation like heartburn/sauna, she can even pass out. She is concerned she might have cardiac issues including coronary disease/POTS etc. REPLACED BY [facility] Medical History (Updated 12/24/23 @ 15:05 by Lamine Tipton MD) Diverticulosis Dyslipidemia Elevated antinuclear antibody (LOI) level Chronic fatigue and malaise Polyarthralgia Tinnitus Eustachian tube dysfunction PTSD (post-traumatic stress disorder) Depressed Addiction Surgical History Hx of colonoscopy Hx of laparoscopy Family History Father Substance abuse Mother Mental health disorder Paternal Grandmother Colon cancer Social History Housing: House Are you a primary healthcare science specialist to a significant other at home: No Do you presently have visiting nurse or other home services: No Alcohol intake: never Patient Tobacco Use Status: Former Tobacco user Tobacco use type: Cigarette Cigarette Packs Per Day: 1 Cigarettes Per Day: 20 Years Smoked: 9 e-Cigarette/Vaping Use: Never Used Second Hand Smoke Exposure: No Current occupational status: employed 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 Cognitive needs: No Hearing needs: No Vision needs: Yes Review of Systems Const Denies chills, Denies daytime sleepiness, Denies fatigue, Denies fever(s), Denies frequent falls, Denies night sweats, Denies snoring, Denies weakness, Denies weight gain and Denies weight loss Eyes Denies loss of vision ENT Denies dizziness and Denies hearing loss Card Denies chest pain, Denies chest pain with activity, Denies syncope, Denies rapid heart rate, Denies edema, Denies claudication, Denies leg edema, Reports lightheadedness, Reports palpitations, Denies dyspnea, Denies dyspnea on exertion and Denies orthopnea Resp Denies cough, Denies excessive phlegm production, Denies dyspnea, Denies dyspnea on exertion, Denies snoring and Denies wheezing GI Denies abdominal pain, Denies hematochezia, Denies change in bowel habits, Denies change in stool character, Denies heartburn, Denies nausea and Denies vomiting Denies hematuria, Denies urinary frequency and Denies dysuria Musc Denies arthralgias, Denies muscle weakness, Denies numbness and Denies tingling Skin/Breast Denies nail changes and Denies rash Neuro Denies Abnormal speech present, Denies dizziness, Denies syncope, Denies frequent falls, Denies loss of vision, Denies memory loss, Denies numbness, Denies tingling and Denies weakness Psych Denies depression and Denies memory loss Endo Denies fatigue and Reports palpitations Aller/Immun Denies wheezing Physical Exam Vital Signs: Last Vital Signs BP 122/86 12/24/23 14:42 BMI result Body Mass Index 35.4 Const General: comfortable and no acute distress Orientation/consciousness: patient oriented x3 HEENT Other: Unremarkable Head: Yes normal to inspection Neck Neck: Yes normal visual inspection Chest Chest palpation & inspection: normal inspection of the chest Resp Auscultation: clear to auscultation bilaterally Cardio Palpation: normal PMI Heart sounds: S1 normal heart sound present, S2 normal heart sound present, no gallops, no murmurs and no rubs GI Palpation (GI): Soft to palpation Back/Spine/Pelvis Other: unremarkable Skin General skin exam: no rashes or lesions noted Neuro General: patient oriented x3 Speech: No Abnormal speech present Extrem General: Yes normal to inspection Psych Mental Status: mental status grossly normal Office Procedures EKG Details: EKG with sinus rhythm at 93/Min; possible left atrial enlargement; [place]. 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 We can pursue comprehensive cardiac workup. This includes an echocardiogram for any valvular issues; coronary CT for any coronary artery disease considering the fact she also has untreated hyperlipidemia with an LDL over 200 mg/dL; tilt-table testing. Once these are completed and reviewed, we can see her back in follow-up. Orders: Orders CA echo transthoracic complete Today Q79.60 - Pranav-Danlos syndrome, unspecified, R07.2 - Precordial pain ECG Tilt Table Test Today G90.A - Postural orthostatic tachycardia syndrome [POTS], Q79.60 - Pranav-Danlos syndrome, unspecified, R55 - Syncope and collapse CT Cardiac Coronary Angio Today I25.10 - Atherosclerotic heart disease of [place] coronary artery without angina pectoris, R07.2 - Precordial pain Basic Metabolic Panel Today R07.2 - Precordial pain Coding Level of Care Code New Pt Level 4 (07785) Diagnoses Precordial chest pain R07.2 Dizziness R42 Hyperlipidemia E78.5 Pranav-Danlos syndrome Q79.60 CPT Codes EKG - CPT: 36450-[id number], Complete ([id number])
== END 2023-12-24 15:37 | disposition home or self-care (01) ==
PROVIDERS: PCP Internal Medicine; Visit Provider Internal Medicine
DX: R07.2 Precordial pain (principal); R42 Dizziness and giddiness; E78.5 Hyperlipidemia, unspecified; Q79.60 Ehlers-Danlos syndrome, unspecified
CPT/HCPCS: 93010; 99204

== ENCOUNTER → 2023-12-24 14:22 | Outpatient (BNVA) | payer OTHER, SELFPAY | PROVIDERS: PCP Internal Medicine; Visit Provider Internal Medicine | DX: Q79.60 Ehlers-Danlos syndrome, unspecified (principal); R07.2 Precordial pain; R42 Dizziness and giddiness; E78.5 Hyperlipidemia, unspecified | CPT/HCPCS: 93005; 99202 ==

== ENCOUNTER → 2024-01-07 12:59 | Outpatient (BNVA) | payer OTHER, SELFPAY | PROVIDERS: PCP Internal Medicine; Visit Provider Physician Assistant Surgical ==

== ENCOUNTER 2024-01-12 13:43 | Outpatient (REF) | payer OTHER, SELFPAY ==
[2024-01-12 14:54] LABS: Anion Gap 12 (12-20); Blood Urea Nitrogen 17 mg/dL (9-16); Calcium 9.4 mg/dL (8.4-10.2); Carbon Dioxide 25 mmol/L (22-29); Chloride 107 mmol/L (96-108); Estimated Glomerular Filt Rate > 60; Glucose Random 100 mg/dL (60-115); Potassium 4.1 mmol/L (3.3-5.1); Sodium 140 mmol/L (135-145)
== END 2024-01-12 13:44 | disposition home or self-care (01) ==
LOC: HO.LAB 13:43
PROVIDERS: PCP Internal Medicine; Visit Provider Internal Medicine
DX: R07.2 Precordial pain (principal)
CPT/HCPCS: 36415; 80048

== ENCOUNTER → 2024-01-21 13:01 | Outpatient (REF) | payer OTHER, SELFPAY ==
--- NOTE | 2024-01-21 13:05 | CA_ITS ---
Transthoracic Echocardiogram Patient (Last, First, Middle): Angelica Iniguez, Gender: Female Date of : 1970 Age: 53 Procedure Date: 01/21/2024 Procedure Type: Transthoracic Echocardiogram Location: OP Height: 154.94 cm Weight: 84.82 kg BSA: 1.84 m2 Heart Rate: 80 bpm BP: 120 / 78 mmHg Credit Officer: MELISSA Referring MD: Lamine Tipton MD Glass Furnace Operator: Derek Meeks MD Symptoms: R07.2 - Precordial pain Study Quality: Fair but adequate ECG Rhythm: Sinus Conclusions: - 1. Normal LV ejection fraction of 65-70% with grade 1 diastolic dysfunction 2. Cardiac valvular Dopplers within normal limits 3. No gross pericardial effusion Findings Left Ventricle Normal left ventricular size, thickness, and systolic function. The visually estimated ejection fraction is between 65-70%. Spectral Doppler is indicative of an impaired relaxation filling pattern. E/E prime ratio is <8, consistent with normal filling pressures. Evidence suggests grade I (mild) diastolic dysfunction. Right Ventricle Normal right ventricular cavity size and systolic function. Atria Both atria are normal in size. There is lipomatous hypertrophy of the interatrial septum. There is no evidence of interatrial shunt. Aortic Valve Normal aortic valve structure and function. There is no aortic valve stenosis. There is no aortic valve regurgitation. Mitral Valve Likely normal mitral valve structure and function. There is trace mitral valve regurgitation. There is no mitral valve stenosis. Pulmonic Valve The pulmonic valve is likely normal. Tricuspid Valve Normal tricuspid valve structure. Tricuspid regurgitation envelope is inadequate for calculation of right ventricular systolic pressure. Great Vessels The pulmonary artery was not well visualized. There is no dilatation of the ascending aorta measuring 3.00 cm. Venous The inferior vena cava is normal in size and collapses greater than 50% with inspiration. Pericardium/Pleural There is no evidence of pericardial effusion. Prior Study Comparison No prior study available for comparison. Measurements 2D Linear Measurements IVSd: 0.71 0.6-0.9/0.6-1.0 cm LVIDd: 4.28 3.9-5.3/4.2-5.9 cm LVIDd Index: 2.33 2.4-3.2/2.2-3.1 cm/m2 LVIDs: 2.83 2.0-3.6 cm LVPWd: 0.77 0.7-1.1 cm LA Diam: 3.20 2.7-3.8/3.0-4.0 cm LAIDs Index: 1.74 1.5-2.3 cm/m2 LV Mass: 116.38 67-162/88-224 g LV Mass Index: 63.25 43-95/49-115 g/m2 LVOT Diam: 2.00 3.0+(-)1.3 cm 2D Systolic Function EF 4C: 66.00 >55% EF 2C: 69.40 >55% EF BiP: 67.20 >55% Mitral Valve MV Pk E: 0.66 MV PK A: 0.76 MV Decel Time: 158.00 E/A: 0.90 E'Lateral: 8.92 E'Medial: 6.09 E/E' Med: 10.80 E/E' Lat: 7.40 PHT: 46.00 MVA PHT: 4.78 Decel [place]: 4.16 Aortic Valve AoV Pk Tushar: 1.17 AoV Pk Grad: 5.00 MAE: 3.06 LVOT LVOT Pk Tushar: 1.14 LVOT Mn Tsuhar: 0.75 LVOT VTI: 0.23 LVOT Pk Grad: 5.00 LVOT Mn Grad: 3.00 LVOT Diam: 2.00 LVOT Area: 3.14 Diastolic Function MV Pk E: 0.66 MV Pk A: 0.76 E/A: 0.90 E'Medial: 6.09 E/E' Med: 10.80 E' Laterial: 8.92 E/E' Lat: 7.40 Right Ventricle TAPSE (mm): 19.40 TVS' Tushar: 11.70 Tricuspid Valve RA Press: 3.00 Great Vessels Aorta Sinus of Valsalva: 3.00 2.0-3.5 cm Ao Asc: 3.00 2.1-3.4 cm Pulmonary Valve PV Pk Tushar: 0.99 Peak PV Grad: 4.00 Updated in Other Vendor System with Status of Final Derek Meeks MD electronically signed on 01/21/2024 2:09:35 PM with status of Final
== END ==
LOC: HO.CARD 13:01
PROVIDERS: PCP Internal Medicine; Visit Provider Internal Medicine
DX: Q79.60 Ehlers-Danlos syndrome, unspecified (principal); R07.2 Precordial pain
CPT/HCPCS: 93306

== ENCOUNTER → 2024-01-21 13:05 | Outpatient (BNV) | payer OTHER, SELFPAY | PROVIDERS: PCP Internal Medicine; Visit Provider Internal Medicine Cardiovascular Disease | DX: R07.2 Precordial pain (principal) | CPT/HCPCS: 93306 ==

== ENCOUNTER 2024-02-02 11:07 | Outpatient (AMB) | payer OTHER, SELFPAY ==
[2024-02-02 11:22] VITALS: BP 146/75; PULSE 102; TEMP 36.4; O2SAT 93; BMI 35.4
--- NOTE | 2024-02-02 11:22 | A.OFFVIS_ITS ---
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 Allergies pseudoephedrine [Sudafed] Allergy (Intermediate, Verified 02/02/24 11:24) increase b/p Sulfa (Sulfonamide Antibiotics) Allergy (Intermediate, Verified 02/02/24 11:24) acute kidney injury sulfamethoxazole [From Bactrim] Allergy (Intermediate, Verified 02/02/24 11:24) kidney function dropped trimethoprim [From Bactrim] Allergy (Intermediate, Verified 02/02/24 11:24) kidney function dropped wheat, casein, soy, tomatoes a Adverse Reaction (Intermediate, Uncoded 02/02/24 11:24) Diarrhea Medication List - Last Reconciled 02/02/24 by CINTIA Vilchis cholecalciferol (vitamin D3) 25 mcg PO DAILY ginkgo biloba 800 mg PO DAILY omega-3 fatty acids 500 mg PO DAILY quercetin 500 mg PO turmeric root extract 500 mg PO DAILY vitamin B complex 1 cap PO DAILY HPI HPI Comments History of Present Illness Details Pt is [place] [facility] [place]. She heard about our program from a friend. Her goal is to lose weight and achieve a healthy lifestyle as well as to improve, if not resolve, obesity related medical conditions, including hld. She reports first being concerned about her weight 5 years ago, highest weight to date was 187.2. Current weight is 187.2 pounds with a BMI of 35.4. She has tried multiple methods of weight loss including fad diets without permanent results. She lives with her and son. 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 She is currently undergoing a cardiac w/u for ongoing fatigue and dzziness especially with any activity and change in position. She wakes at:?9 am, and goes to bed at?MN. Dinner is at 6 pm. Breakfast: 1 egg, slice of smoked salmon, w veg AM snack: skip Lunch: leftovers, protein/bone broth/soba noodles/vegg PM snack: chickory protein latte, chips, fruit, cheese, Dinner: protein (chicken/beef/fish), veggies and sil cuisine, rice or gluten free pasta, After dinner: popcorn, herbal tea (decaf) w honey Other snacks: chips, baked goods, gummy bears Liquids: 48-64 oz water, no soda, juice Alcohol/marijuana/tobacco intake: none Exercise: PT for her fibromyalgia and EDS (hypermobile type). walking 2-3 x per month dependent on her fatigue GERD score: 2 YONIS score: 8 ESS score: 12 QOL score: 90 PFSH Medical History Diverticulosis Dyslipidemia Elevated antinuclear antibody (LOI) level Chronic fatigue and malaise Polyarthralgia Tinnitus Eustachian tube dysfunction PTSD (post-traumatic stress disorder) Depressed Addiction Surgical History Hx of colonoscopy Hx of laparoscopy Family History Father Substance abuse Mother Mental health disorder Paternal Grandmother Colon cancer Social History Housing: House Are you a primary patient care provider to a significant other at home: No Do you presently have visiting nurse or other home services: No Alcohol intake: never Patient Tobacco Use Status: Former Tobacco user Tobacco use type: Cigarette Cigarette Packs Per Day: 1 Cigarettes Per Day: 20 Years Smoked: 9 e-Cigarette/Vaping Use: Never Used Second Hand Smoke Exposure: No Current occupational status: employed 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 Cognitive needs: No Hearing needs: No Vision needs: Yes Review of Systems Const All systems reviewed & are unremarkable except as noted in HPI and below Reports daytime sleepiness, Reports fatigue, Reports lethargy and Reports snoring Resp Reports snoring Endo Reports fatigue Physical Exam Const General: cooperative, healthy appearing and no acute distress Orientation/consciousness: patient oriented x3 HEENT Head: Yes normal to inspection Ears: hearing grossly normal bilaterally General nose exam: Normal external nose present Face and sinus: Yes normal facial exam Eyes General: appearance normal, both eyes and all related structures Resp Effort & Inspection: normal respiratory effort Auscultation: clear to auscultation bilaterally Cardio Rate: regular rate Rhythm: regular rhythm Heart sounds: S1 normal heart sound present and S2 normal heart sound present GI Inspection: Yes normal to inspection, No distended and Yes obesity Palpation (GI): Soft to palpation, nontender and no guarding Auscultation: normal bowel sounds Skin General skin exam: no rashes or lesions noted Neuro General: patient oriented x3 Extrem General: No edema Psych Appearance: grossly normal Mental Status: mental status grossly normal Speech and movement: Normal speech and movement present Affect: normal affect Attitude: cooperative Assessment & Plan Assessment & Plan (1) Obesity (BMI 30-39.9): Code(s): E66.9 - Obesity, unspecified Plan: This is a?53 yo female who will start our MWL program.? We will order blood work and a home sleep study for further evaluation. She does complain of significant snoring, daytime fatigue and morning sleepiness. Additionally, her exercise tolerance is extremely limited due to complaints of feeling dizzy e specially with any positional changes. She has underlying comorbidities and is currently being worked up by Cardiology and therefore an exercise program will not be recommended at this time until cleared by Cardiology to do cardiovascular activities. This was discussed with the patient and she is in agreement with that plan. ? Adequate sleep of 7-8 hours per night discussed, awakening at 9 am and going to bed at AK ? Purchase body composition analyzer scale (Ritesho recommended) and check weight weekly. The best time to do this is first thing in the morning after going to the bathroom. 1. Nutritional counseling: Be sure to careful read the number of scoops per shake Start with 2 Orgain protein shakes ([place], MOGL), First shake (1.5 scoops in 12 oz unsweetened almond milk) at 10am-12pm Meal at 1pm (7 forks of protein and 7 forks of salad/vegetables). Meal to include lean meat (beef, fish, pork, turkey, chicken), cooked vegetables or a salad with olive oil and/or fruits (berries, pears, apples, kiwi). Avoid salt, breads, potatoes, rice, pasta, desserts. Another meal at 6 pm, same as above Another shake with 1/2 scoop in 8 oz unsweetened almond milk at 8pm-10pm. Try to drink 64 oz of water daily and avoid soda and juices. ?2. Each shake would be drunk slowly, like coffee in a period of 2 hours. ?3. Cut each bar in 4 pieces and eat each piece in 30 min ?to make each bar last 2 hours. ?4. I emphasized the importance of measuring accurately the food portion and measure it carefully when serving the food on the plate ?5. The meal portions include 7 full-size forks of meat and 7 full-size forks of salad. You always eat the meat portion but you can replace up to half of the forks of salad/vegetables with rice, potatoes or pasta, or a fruit ?if you like. The less you do it the better weight loss will be. ?6. One full-size fork is what can be scooped on the fork without falling aside and not what can be bit with the fork. Use regular forks like those you find in a typical restaurant. ?7.? Please send me weight measurements as soon as possible and then once a week. Always include your diet and exercise plan. Alternatively come weekly at the office for weight checks and send me the measurements. ?8. Exercise counseling: You are currently undergoing a workup by Cardiology for your complaints of dizziness. Once you have been cleared by Cardiology to do low-impact cardiovascular activities such as the treadmill, elliptical or stationary bike, please let me know as soon as possible so that I may give you an exercise plan. 9. Please follow the diet plan exactly, without any change. If you do not like something about the plan or you feel hungry, you need to communicate with me so I can help you revise the plan. You should not change the plan yourself. Text me at [phone] 10. Goal is to lose at least 8 pounds in the first month Patient is morbidly obese and is not considered stable at this time.?I spent a total of 70 minutes reviewing/updating records, examining the patient and counseling the patient on weight management as detailed above. (2) Snoring: Code(s): R06.83 - Snoring Plan: check home sleep study especially given c/o snoring, daytime fatigue, morning tiredness and ESS of 12 Orders: Orders Insulin Today E66.9 - Obesity, unspecified, R06.83 - Snoring, R53.81 - Other malaise, R53.82 - Chronic fatigue, unspecified Complete Blood Count Auto Diff Today E66.9 - Obesity, unspecified, R06.83 - Snoring, R53.81 - Other malaise, R53.82 - Chronic fatigue, unspecified Lipid Panel Today E66.9 - Obesity, unspecified, R06.83 - Snoring, R53.81 - Other malaise, R53.82 - Chronic fatigue, unspecified Zinc Today E66.9 - Obesity, unspecified, R06.83 - Snoring, R53.81 - Other malaise, R53.82 - Chronic fatigue, unspecified C Reactive Protein Today E66.9 - Obesity, unspecified, R06.83 - Snoring, R53.81 - Other malaise, R53.82 - Chronic fatigue, unspecified Vitamin A Today E66.9 - Obesity, unspecified, R06.83 - Snoring, R53.81 - Other malaise, R53.82 - Chronic fatigue, unspecified TSH reflex Free T4 Today E66.9 - Obesity, unspecified, R06.83 - Snoring, R53.81 - Other malaise, R53.82 - Chronic fatigue, unspecified Vitamin D 25-OH Total Today E66.9 - Obesity, unspecified, R06.83 - Snoring, R53.81 - Other malaise, R53.82 - Chronic fatigue, unspecified RT home sleep study Today E66.9 - Obesity, unspecified, R06.83 - Snoring, R53.81 - Other malaise, R53.82 - Chronic fatigue, unspecified Hemoglobin A1c Today E66.9 - Obesity, unspecified, R06.83 - Snoring, R53.81 - Other malaise, R53.82 - Chronic fatigue, unspecified IRON PROFILE Today E66.9 - Obesity, unspecified, R06.83 - Snoring, R53.81 - Other malaise, R53.82 - Chronic fatigue, unspecified Vitamin B12 and Folate Today E66.9 - Obesity, unspecified, R06.83 - Snoring, R53.81 - Other malaise, R53.82 - Chronic fatigue, unspecified Vitamin B1 Today E66.9 - Obesity, unspecified, R06.83 - Snoring, R53.81 - Other malaise, R53.82 - Chronic fatigue, unspecified Ferritin Today E66.9 - Obesity, unspecified, R06.83 - Snoring, R53.81 - Other malaise, R53.82 - Chronic fatigue, unspecified Coding Level of Care Code New Pt Level 4 (56148) Diagnoses Obesity (BMI 30-39.9) E66.9 Snoring R06.83 Time Spent (min) 70
== END 2024-02-02 12:55 | disposition home or self-care (01) ==
PROVIDERS: PCP Internal Medicine; Visit Provider Physician Assistant Surgical
DX: E66.9 Obesity, unspecified (principal); Z68.35 Body mass index [BMI] 35.0-35.9, adult; R06.83 Snoring
CPT/HCPCS: 99204

== ENCOUNTER → 2024-02-02 11:15 | Outpatient (BNVA) | payer OTHER, SELFPAY | PROVIDERS: PCP Internal Medicine; Visit Provider Physician Assistant Surgical | DX: E66.9 Obesity, unspecified (principal); Z68.35 Body mass index [BMI] 35.0-35.9, adult | CPT/HCPCS: 99202 ==

== ENCOUNTER 2024-03-29 10:00 | Outpatient (RCR) | payer OTHER, SELFPAY | END 2024-03-29 11:14 | disposition home or self-care (01) | LOC: HO.PTCHIC 10:00 | PROVIDERS: PCP Internal Medicine; Visit Provider Internal Medicine Rheumatology | DX: M25.50 Pain in unspecified joint (principal); Q79.62 Hypermobile Ehlers-Danlos syndrome | CPT/HCPCS: 97110; 97140; 97162; 97530 ==

== ENCOUNTER → 2024-04-05 10:00 | Outpatient (BNV) | payer OTHER, SELFPAY | PROVIDERS: PCP Internal Medicine; Visit Provider Internal Medicine | DX: R06.83 Snoring (principal) | CPT/HCPCS: 95806 ==

== ENCOUNTER → 2024-04-05 11:08 | Outpatient (REF) | payer OTHER, SELFPAY | LOC: HO.SL 11:08 | PROVIDERS: PCP Internal Medicine; Visit Provider Physician Assistant Surgical | DX: E66.9 Obesity, unspecified (principal); R06.83 Snoring; R53.83 Other fatigue | CPT/HCPCS: 95806 ==

== ENCOUNTER 2024-05-05 11:04 | Outpatient (AMB) | payer OTHER, SELFPAY ==
--- NOTE | 2024-05-05 11:06 | A.OFFVIS_ITS ---
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 Accompanied by: Self / Same As Patient Allergies pseudoephedrine [Sudafed] Allergy (Intermediate, Verified 02/02/24 11:24) increase b/p Sulfa (Sulfonamide Antibiotics) Allergy (Intermediate, Verified 02/02/24 11:24) acute kidney injury sulfamethoxazole [From Bactrim] Allergy (Intermediate, Verified 02/02/24 11:24) kidney function dropped trimethoprim [From Bactrim] Allergy (Intermediate, Verified 02/02/24 11:24) kidney function dropped wheat, casein, soy, tomatoes a Adverse Reaction (Intermediate, Uncoded 02/02/24 11:24) Diarrhea Medication List - Last Reconciled 05/05/24 by Lamine Tipton MD cholecalciferol (vitamin D3) 25 mcg PO DAILY ginkgo biloba 800 mg PO DAILY omega-3 fatty acids 500 mg PO DAILY quercetin 500 mg PO turmeric root extract 500 mg PO DAILY vitamin B complex 1 cap PO DAILY HPI Comments Details: Angelica Dominguez returns for follow-up. Recently seen in consultation regarding various symptoms. She states that she has Yuuqwh-[id number]-[id number] syndrome. She has various cardiac concerns. She frequently gets chest pains but no specific patterns. Somewhat random. She also gets short of breath with activity. Dizziness, feels tachycardic upon getting up. Whenever she is in hot situation like heartburn/sauna, she can even pass out. She is concerned she might have cardiac issues including coronary disease/POTS etc. She has undergone an echocardiogram, coronary CTA as well as tilt-table test. [facility] Medical History Diverticulosis Dyslipidemia Elevated antinuclear antibody (LOI) level Chronic fatigue and malaise Polyarthralgia Tinnitus Eustachian tube dysfunction PTSD (post-traumatic stress disorder) Depressed Addiction Surgical History Hx of colonoscopy Hx of laparoscopy Family History Father Substance abuse Mother Mental health disorder Paternal Grandmother Colon cancer Social History Housing: House Are you a primary home care administrator to a significant other at home: No Do you presently have visiting nurse or other home services: No Alcohol intake: never Patient Tobacco Use Status: Former Tobacco user Tobacco use type: Cigarette Cigarette Packs Per Day: 1 Cigarettes Per Day: 20 Years Smoked: 9 e-Cigarette/Vaping Use: Never Used Second Hand Smoke Exposure: No Current occupational status: employed 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 Cognitive needs: No Hearing needs: No Vision needs: Yes Review of Systems Const Denies chills, Denies fatigue, Denies fever(s), Denies frequent falls, Denies weakness, Denies weight gain and Denies weight loss ENT Denies dizziness Card Denies chest pain, Denies leg edema, Denies lightheadedness, Denies palpitations, Denies dyspnea and Denies dyspnea on exertion Resp Denies cough, Denies dyspnea and Denies dyspnea on exertion GI Denies hematochezia Musc Denies abnormal gait, Denies muscle weakness, Denies numbness, Denies radiating pain into limb and Denies tingling Neuro Denies abnormal gait, Denies dizziness, Denies frequent falls, Denies numbness, Denies tingling and Denies weakness Endo Denies fatigue and Denies palpitations Physical Exam Vital Signs: Last Vital Signs Pulse 87 05/05/24 11:07 BP 130/70 05/05/24 11:07 BMI result Body Mass Index 34.6 Const General: comfortable and no acute distress Orientation/consciousness: patient oriented x3 HEENT Other: Unremarkable Head: Yes normal to inspection Neck Neck: Yes normal visual inspection Chest Chest palpation & inspection: normal inspection of the chest Resp Auscultation: clear to auscultation bilaterally Cardio Palpation: normal PMI Heart sounds: S1 normal heart sound present, S2 normal heart sound present, no gallops, no murmurs and no rubs GI Palpation (GI): Soft to palpation Back/Spine/Pelvis Other: unremarkable Skin General skin exam: no rashes or lesions noted Neuro General: patient oriented x3 Extrem General: Yes normal to inspection Psych Mental Status: mental status grossly normal Assessment & Plan Assessment & Plan (1) Precordial chest pain: Code(s): R07.2 - Precordial pain Category: Medical (2) Dizziness: Code(s): R42 - Dizziness and giddiness Category: Medical (3) Hyperlipidemia: Code(s): E78.5 - Hyperlipidemia, unspecified Category: Medical (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 Coronary CT reported to be normal. Echocardiogram with normal LVEF, 65-70% but otherwise unremarkable. There is mention of grade 1 diastolic dysfunction. However, medial E prime is 6 and laterally primus 9 which is almost normal. Also there is no evidence of left atrial enlargement or pulmonary hypertension hence I believe Diastology is probably within normal sabillon In the tilt-table test, it seems that she had resting hypertension but patient states she had a panic attack that day. With the tilt, blood pressure rather went up while the heart rate remained stable. There was no clear evidence of POTS, orthostatic hypotension or any other major abnormalities. Overall, her symptoms are likely noncardiac in nature. Mainly reassurance provided. With regard to intermittent elevation in blood pressure, she believes it is because of anxiety/panic. Advised to do home blood pressure monitoring. If consistently high, will need re-evaluate. With regard to lipids, on the higher side. She would like to avoid statins and focus on weight loss which is reasonable. She is going to the bariatric program. If she does lose considerable weight, then blood pressure as well as cholesterol should improve. She can follow her lipids through her own PCP. She will call us with ongoing issues. Total time spent including review of data, counseling, documentation, coordination of care-31 minutes. Coding Level of Care Code Est Pt Level 4 (86353) Diagnoses Precordial chest pain R07.2 Dizziness R42 Hyperlipidemia E78.5 Pranav-Danlos syndrome Q79.60
[2024-05-05 11:07] VITALS: BP 130/70; PULSE 87; BMI 34.6
== END 2024-05-05 11:28 | disposition home or self-care (01) ==
PROVIDERS: PCP Internal Medicine; Visit Provider Internal Medicine
DX: R07.2 Precordial pain (principal); R42 Dizziness and giddiness; E78.5 Hyperlipidemia, unspecified; Q79.60 Ehlers-Danlos syndrome, unspecified
CPT/HCPCS: 99214

== ENCOUNTER → 2024-05-05 11:04 | Outpatient (BNVA) | payer OTHER, SELFPAY | PROVIDERS: PCP Internal Medicine; Visit Provider Internal Medicine | DX: Q79.60 Ehlers-Danlos syndrome, unspecified (principal); R07.2 Precordial pain; R42 Dizziness and giddiness; E78.5 Hyperlipidemia, unspecified | CPT/HCPCS: 99212 ==

== ENCOUNTER 2024-05-07 11:31 | Outpatient (AMB) | payer OTHER, SELFPAY ==
--- NOTE | 2024-05-07 09:23 | MHC.OFFVISWM ---
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 Allergies pseudoephedrine [Sudafed] Allergy (Intermediate, Verified 02/02/24 11:24) increase b/p Sulfa (Sulfonamide Antibiotics) Allergy (Intermediate, Verified 02/02/24 11:24) acute kidney injury sulfamethoxazole [From Bactrim] Allergy (Intermediate, Verified 02/02/24 11:24) kidney function dropped trimethoprim [From Bactrim] Allergy (Intermediate, Verified 02/02/24 11:24) kidney function dropped wheat, casein, soy, tomatoes a Adverse Reaction (Intermediate, Uncoded 02/02/24 11:24) Diarrhea Medication List - Last Reconciled 05/07/24 by CINTIA Vilchis cholecalciferol (vitamin D3) 25 mcg PO DAILY ginkgo biloba 800 mg PO DAILY omega-3 fatty acids 500 mg PO DAILY quercetin 500 mg PO turmeric root extract 500 mg PO DAILY vitamin B complex 1 cap PO DAILY HPI Comments Details: Patient is a 53-year-old female who returns to the office today to follow up in the medical weight loss program. She was initially seen on 02/02/2024 with a weight of 187.2 pounds with a BMI of 35.4. Weight today is 179.5 lb with a BMI of 33.9. She has been dealing with multiple issues at home including a sick family member who ultimately . She has been trying to adhere to the meal plan as best as she can. She additionally states that she has been seen by Cardiology and can now exercise without restriction. She has had the breakfast shake and that has been helpful but the meals were more effective at this time as she is no longer going back and forth to [place]. Meal plan: 2 Orgain protein shakes ([employer]), First shake (1.5 scoops in 12 oz unsweetened almond milk) at 10am-12pm Meal at 1pm (7 forks of protein and 7 forks of salad/vegetables). Another meal at 6 pm, same as above Another shake with 1/2 scoop in 8 oz unsweetened almond milk at 8pm-10pm. Drinking 96 oz water Exercise plan: Finished PT for EDS (Pranav-Danlos Syndrome) now gardening walking PFSH Medical History Diverticulosis Dyslipidemia Elevated antinuclear antibody (LOI) level Chronic fatigue and malaise Polyarthralgia Tinnitus Eustachian tube dysfunction PTSD (post-traumatic stress disorder) Depressed Addiction Surgical History Hx of colonoscopy Hx of laparoscopy Family History Father Substance abuse Mother Mental health disorder Paternal Grandmother Colon cancer Social History Housing: House Are you a primary care director to a significant other at home: No Do you presently have visiting nurse or other home services: No Alcohol intake: never Patient Tobacco Use Status: Former Tobacco user Tobacco use type: Cigarette Cigarette Packs Per Day: 1 Cigarettes Per Day: 20 Years Smoked: 9 e-Cigarette/Vaping Use: Never Used Second Hand Smoke Exposure: No Current occupational status: employed 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 Cognitive needs: No Hearing needs: No Vision needs: Yes Telehealth Telehealth Telehealth Platform: Telephone Location of provider rendering services: practice address Location of patient: address on file Patient Identification confirmed using: Name, : Yes Telehealth method: voice only Patient verbally consented to treatment: Yes Patient verbally consented to billing insurance company: Yes Patient informed of any privacy concerns related to visit: Yes Minutes spent on Phone/Video with Pt.: 15 Assessment & Plan Assessment & Plan (1) Obesity (BMI 30-39.9): Code(s): E66.9 - Obesity, unspecified Category: Medical Plan: 2 Orgain protein shakes ([employer]), First shake (1.5 scoops in 12 oz unsweetened almond milk) at 10am-12pm Meal at 1pm (7 forks of protein and 7 forks of salad/vegetables). Another meal at 6 pm, same as above Cut fresh fruit including berries or apple or pear or kiwi Encouraged to joined [employer] and start recumbent bike with an ultimate goal of 300 calories burned per day. We will have her return to the office in 6 weeks' time. She additionally has my cell phone number and encouraged to text weekly with any questions or concerns.
[2024-05-07 09:24] VITALS: BMI 33.9
== END 2024-05-07 11:32 | disposition home or self-care (01) ==
LOC: HO.HBS 11:31
PROVIDERS: PCP Internal Medicine; Visit Provider Physician Assistant Surgical
DX: E66.9 Obesity, unspecified (principal)
CPT/HCPCS: 99213

== ENCOUNTER → 2024-05-07 11:31 | Outpatient (BNVA) | payer OTHER, SELFPAY | PROVIDERS: PCP Internal Medicine; Visit Provider Physician Assistant Surgical ==

== ENCOUNTER 2024-05-24 11:21 | Outpatient (REF) | payer OTHER, SELFPAY ==
[2024-05-24 12:36] LABS: MANUAL DIFF FLAG NO
[2024-05-24 13:00] LABS: Basophils Percent Auto 0.3 % (0-2); Hematocrit 39.9 % (37.0-47.0); Hemoglobin 13.8 g/dl (12.0-16.0); Imm Gran Abs Auto 0.01 X10*3/uL (0.00-0.03); Imm Gran Pct Auto 0.3 % (0.0-0.4); Lymphocytes Absolute Auto 0.4 X10*3/uL (1.2-4.9); Lymphocytes Percent Auto 12.4 % (20-40); Mean Corpuscular HGB Conc 34.6 g/dl (31.0-35.0); Mean Corpuscular Hemoglobin 30.1 pg (27.0-33.0); Mean Corpuscular Volume 87.1 fL (80.0-98.0); Monocytes Absolute Auto 0.2 X10*3/uL (0.1-1.2); Monocytes Percent Auto 4.5 % (2-11); Neutrophils Absolute Auto 2.7 x10*3/uL (2.0-8.3); Neutrophils Percent Auto 82.5 % (45-73); Red Blood Count 4.58 X10*6/uL (4.20-5.50); Red Cell Distribution Width 12.5 % (11.0-16.0); White Blood Count 3.3 X10*3/uL (4.8-10.8)
[2024-05-24 13:23] LABS: Alanine Aminotransferase 24 U/L (0-31); Albumin Level 4.2 g/dL (3.5-5.0); Alkaline Phosphatase 61 U/L (39-117); Anion Gap 11 (12-20); Aspartate Amino Transferase 30 U/L (5-31); Bilirubin Direct 0.2 mg/dL (0.0-0.5); Bilirubin Total 0.6 mg/dL (0.0-1.0); Blood Urea Nitrogen 12 mg/dL (9-16); C Reactive Protein 10.26 mg/dL (< or = 0.50); Calcium 9.5 mg/dL (8.4-10.2); Carbon Dioxide 25 mmol/L (22-29); Chloride 105 mmol/L (96-108); Estimated Glomerular Filt Rate > 60; Glucose Random 116 mg/dL (60-115); Potassium 3.8 mmol/L (3.3-5.1); Sodium 137 mmol/L (135-145); Total Protein 7.4 g/dL (6.5-8.0)
[2024-05-24 13:31] LABS: IDNOW Serial# 08D9AD1C; Influenza A Negative (Negative); Influenza B2 Negative (Negative)
[2024-05-24 13:45] LABS: Erythrocyte Sedimentation Rate 10 MM/HR (0-20)
[2024-05-24 13:49] LABS: Mean Platelet Volume 9.1 fL (9.4-12.3); Platelet Count 98 X10*3/uL (160-400)
== END 2024-05-24 11:22 | disposition home or self-care (01) ==
LOC: HO.HMGCLDS 11:21
PROVIDERS: PCP Internal Medicine; Visit Provider Internal Medicine
DX: R50.9 Fever, unspecified (principal); R52 Pain, unspecified
CPT/HCPCS: 80048; 80076; 85025; 85652; 86140; 87502

== ENCOUNTER 2024-05-24 12:12 | Outpatient (REF) | payer OTHER, SELFPAY | END 2024-05-24 12:13 | disposition home or self-care (01) | LOC: HO.LAB 12:12 | PROVIDERS: PCP Internal Medicine; Visit Provider Internal Medicine | DX: Z13.89 Encounter for screening for other disorder (principal) ==

== ENCOUNTER 2024-05-25 11:12 | Outpatient (REF) | payer OTHER, SELFPAY ==
[2024-05-25 11:45] LABS: COVID-19 Test Negative (Negative); IDNOW Serial# 152EDE1D
[2024-05-26 09:13] LABS: Lyme Abs Screen <0.90 index
== END 2024-05-25 11:13 | disposition home or self-care (01) ==
LOC: HO.LAB 11:12
PROVIDERS: PCP Internal Medicine; Visit Provider Internal Medicine
DX: R50.9 Fever, unspecified (principal); R52 Pain, unspecified
CPT/HCPCS: 86617; 86618; 87635

== ENCOUNTER 2024-06-02 10:58 | Outpatient (REF) | payer OTHER, SELFPAY ==
[2024-06-02 13:02] LABS: MANUAL DIFF FLAG NO
[2024-06-02 13:06] LABS: Basophils Percent Auto 0.7 % (0-2); Eosinophils Absolute Auto 0.1 X10*3/uL (0.0-0.4); Eosinophils Percent Auto 1.6 % (0-4); Hematocrit 38.6 % (37.0-47.0); Hemoglobin 13.3 g/dl (12.0-16.0); Imm Gran Abs Auto 0.02 X10*3/uL (0.00-0.03); Imm Gran Pct Auto 0.4 % (0.0-0.4); Lymphocytes Absolute Auto 2.2 X10*3/uL (1.2-4.9); Lymphocytes Percent Auto 38.8 % (20-40); Mean Corpuscular HGB Conc 34.5 g/dl (31.0-35.0); Mean Corpuscular Hemoglobin 30.2 pg (27.0-33.0); Mean Corpuscular Volume 87.5 fL (80.0-98.0); Mean Platelet Volume 8.8 fL (9.4-12.3); Monocytes Absolute Auto 0.5 X10*3/uL (0.1-1.2); Monocytes Percent Auto 9.6 % (2-11); Neutrophils Absolute Auto 2.8 x10*3/uL (2.0-8.3); Neutrophils Percent Auto 48.9 % (45-73); Platelet Count 398 X10*3/uL (160-400); Red Blood Count 4.41 X10*6/uL (4.20-5.50); Red Cell Distribution Width 12.5 % (11.0-16.0); White Blood Count 5.6 X10*3/uL (4.8-10.8)
[2024-06-02 13:52] LABS: Erythrocyte Sedimentation Rate 11 MM/HR (0-20)
== END 2024-06-02 10:59 | disposition home or self-care (01) ==
LOC: HO.HMGCLDS 10:58
PROVIDERS: PCP Internal Medicine; Visit Provider Internal Medicine
DX: R50.9 Fever, unspecified (principal); R52 Pain, unspecified
CPT/HCPCS: 36415; 85025; 85652; 86140

== ENCOUNTER 2024-06-11 11:29 | Outpatient (AMB) | payer OTHER, SELFPAY ==
[2024-06-11 11:00] VITALS: BMI 32.3
--- NOTE | 2024-06-11 11:00 | MHC.OFFVISWM ---
VS Expanded 06/11/24 11:00 Height 5 ft 1 in Weight 171 lb 3 oz BMI 32.3 Intake Visit Reasons: (TV) F/U [facility] Allergies pseudoephedrine [Sudafed] Allergy (Intermediate, Verified 02/02/24 11:24) increase b/p Sulfa (Sulfonamide Antibiotics) Allergy (Intermediate, Verified 02/02/24 11:24) acute kidney injury sulfamethoxazole [From Bactrim] Allergy (Intermediate, Verified 02/02/24 11:24) kidney function dropped trimethoprim [From Bactrim] Allergy (Intermediate, Verified 02/02/24 11:24) kidney function dropped wheat, casein, soy, tomatoes a Adverse Reaction (Intermediate, Uncoded 02/02/24 11:24) Diarrhea HPI Comments Details: Patient is a 53-year-old female who returns to the office today to follow up in the medical weight loss program. She was initially seen on 02/02/2024 with a weight of 187.2 pounds with a BMI of 35.4. Weight today is 171.3 lb with a BMI of 32.3. She has been dealing with multiple issues at home including a sick family member who ultimately . She has been trying to adhere to the meal plan as best as she can. She additionally states that she has been seen by Cardiology and can now exercise without restriction. She states she is doing well. She has been following the meal plan for the most part. She did have a birthday constitution party and some other events but is making better choices. She has been working with a middle school baseball coach, she was told she should have more healthy oils in her diet such as avocado or olive oil Meal plan: 2 Orgain protein shakes ([employer]), First shake (1.5 scoops in 12 oz unsweetened almond milk) at 10am-12pm Meal at 1pm (7 forks of protein and 7 forks of salad/vegetables). Another meal at 6 pm, same as above Cut fresh fruit including berries or apple or pear or kiwi Drinking 96 oz water Exercise plan: Finished PT for EDS (Pranav-Danlos Syndrome) had flair earlier this month and she is under the care of her link trainer mechanic, doing strength training and walking routine. [facility] Medical History Diverticulosis Dyslipidemia Elevated antinuclear antibody (LOI) level Chronic fatigue and malaise Polyarthralgia Tinnitus Eustachian tube dysfunction PTSD (post-traumatic stress disorder) Depressed Addiction Surgical History Hx of colonoscopy Hx of laparoscopy Family History Father Substance abuse Mother Mental health disorder Paternal Grandmother Colon cancer Social History Housing: House Are you a primary interior plant caretaker to a significant other at home: No Do you presently have visiting nurse or other home services: No Alcohol intake: never Patient Tobacco Use Status: Former Tobacco user Tobacco use type: Cigarette Cigarette Packs Per Day: 1 Cigarettes Per Day: 20 Years Smoked: 9 e-Cigarette/Vaping Use: Never Used Second Hand Smoke Exposure: No Current occupational status: employed 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 Cognitive needs: No Hearing needs: No Vision needs: Yes Telehealth Telehealth Telehealth Platform: Telephone Location of provider rendering services: practice address Location of patient: address on file Patient Identification confirmed using: Name, : Yes Telehealth method: voice only Patient verbally consented to treatment: Yes Patient verbally consented to billing insurance company: Yes Patient informed of any privacy concerns related to visit: Yes Minutes spent on Phone/Video with Pt.: 15 Assessment & Plan Assessment & Plan (1) Obesity (BMI 30-39.9): Code(s): E66.9 - Obesity, unspecified Category: Medical Plan: Overall, she is doing well. She will continue her current plans, she will contact the office when she achieves a healthy weight and wishes referral to a dietitian for long-term planning. She may additionally seek advice from her primary care physician regarding this matter.
== END 2024-06-11 11:38 | disposition home or self-care (01) ==
LOC: HO.HBS 11:29
PROVIDERS: PCP Internal Medicine; Visit Provider Physician Assistant Surgical
DX: E66.9 Obesity, unspecified (principal)
CPT/HCPCS: 99213

== ENCOUNTER → 2024-06-11 11:29 | Outpatient (BNVA) | payer OTHER, SELFPAY | PROVIDERS: PCP Internal Medicine; Visit Provider Physician Assistant Surgical | DX: E66.9 Obesity, unspecified (principal) ==